=== PATIENT | female | born 1935 | race Caucasian/White ===

== ENCOUNTER 2018-01-13 07:53 | Day surgery (SDC) | payer MEDICARE, OTHER ==
[~2018-01-13] VITALS: Ht 170.2 cm; Wt 72.6 kg
[2018-01-13 07:52] VITALS: BP 125/66
[~2018-01-13 07:53] MED LIST: AMIT50TA3 PO; AMLO5TAB2 PO; ASPI-586 PO; CALC-902 PO; CETI10TA17 PO; DICL50TA6 PO; FERR159T2 PO; FLUT9.9S NS; GABA-486 PO; GUAI600T43 PO; IBUP-2055 PO; L.AC1CAP6 PO; LEVO88TA54 PO; LISI10TA2 PO; OMEG-154 PO; OMEP20CA12 PO
[2018-01-13] MEDS ORDERED: ceFAZolin INJECTION 1,000 MG in NS (IVPB) 100 ML IV ONE (08:00)
[2018-01-13] MEDS: LACTATED RINGERS 1,000 ML IV PRN ×2 (08:41→10:40)
[2018-01-13] MEDS ORDERED: LACTATED RINGERS 1,000 ML IV PRN (08:43)
[2018-01-13] MEDS ORDERED: FAMOTIDINE 20MG/2ML IV (PEPCID) IV ONE (08:45)
[2018-01-13] MEDS ORDERED: FAMOTIDINE 20MG/2ML IV (PEPCID) ONE (08:53)
[2018-01-13] MEDS ORDERED: LIDOCAINE PF 2% 5 ML (XYLOCAINE) VIAL ONE (09:12)
[2018-01-13] MEDS ORDERED: SEVOFLURANE (ULTANE) 15 ML INHAL SOLN ONE (09:12)
[2018-01-13] MEDS ORDERED: ONDANSETRON 4 MG/2 ML (SDV) Z0FRAN ONE (09:12)
[2018-01-13] MEDS ORDERED: fentaNYL INJECTION 100 MCG/2 ML AMP ONE (09:12)
[2018-01-13] MEDS ORDERED: proPOfol 200 MG/20 ML (DIPRIVAN) VIAL IV ONE (09:12)
[2018-01-13] MEDS ORDERED: DEXAMETHASONE 10 MG/ML (DECADRON) 1 ML VIAL ONE (09:12)
[2018-01-13] MEDS ORDERED: BUPIVACAINE 0.5% 30 ML (SENSORCAINE) VIAL ONE (09:39)
--- NOTE | 2018-01-13 10:04 | Progress Note-Pre Operative ---
Pre-Operative Progress Note H&P Reviewed The H&P was reviewed, patient examined and no changes noted. 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
[2018-01-13] MEDS ORDERED: LACTATED RINGERS 1,000 ML IV SCH (11:55)
--- NOTE | 2018-01-13 11:55 | Progress Note-Post Operative ---
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
[2018-01-13] MEDS ORDERED: ACHD5005 PO (11:58)
[2018-01-13] MEDS ORDERED: CEPH500C PO (11:58)
[2018-01-13] MEDS ORDERED: HYDROcodone/APAP 5 MG/325 MG (LORTAB) TAB PO PRN (12:00)
--- NOTE | 2018-01-13 12:07 | Anesthesia-General Post-Op ---
General Patient Condition Mental Status/LOC: Same as Preop Cardiovascular: Satisfactory Nausea/Vomiting: Absent Respiratory: Satisfactory Pain: Controlled Complications: Absent Post Op Complications Complications None Follow Up Care/Instructions Patient Instructions None needed. Anesthesia/Patient Condition Patient Condition Patient is doing well, no complaints, stable vital signs, no apparent adverse anesthesia problems. No complications reported per nursing. [place] [facility] [place] DERECK ESPOSITO CRNA January 13, 2018 12:07
[2018-01-13] MEDS ORDERED: ONDANSETRON 4 MG/2 ML (SDV) Z0FRAN IVP PRN (12:15)
[2018-01-13] MEDS ORDERED: morphine INJ 10 MG/ML 1ML (SYR OR VIAL) IVP PRN (12:15)
[2018-01-13 12:55] VITALS: BP 106/97
[2018-01-13 13:25] VITALS: BP 137/74
--- NOTE | 2018-01-13 13:42 | Diagnostic Imaging Report ---
INDICATION: Hammertoe surgery. TIME OF EXAM: 12:22 p.m. FINDINGS: Two views of the right foot demonstrate postsurgical changes. There are postop changes involving the third and fourth toes with screws transfixing the proximal phalanges. There is a K-wire extending through the fourth toe. There has also been resection of the distal aspect of the proximal phalanx of the fifth toe. IMPRESSION: Postop changes to the right foot, as described. Dictated by: Dictated on workstation # [id number]
[2018-01-13 14:00] VITALS: BP 136/66
[2018-01-13 14:35] VITALS: BP 136/66
--- NOTE | 2018-01-13 16:40 | OPERATIVE REPORT ---
DATE OF SERVICE: 01/13/2018 SURGEON: Mary Cortez DPM. PREOPERATIVE DIAGNOSIS: Hammer digit syndrome, right fourth and fifth digits. POSTOPERATIVE DIAGNOSIS: Hammer digit syndrome, right fourth and fifth digits, failed hardware fourth and fifth digits. PROCEDURE: 1. Reduction of hammertoe, right fourth and fifth digits. 2. Removal of hardware, right fifth digit. WOUND CLASS: Clean. ANESTHESIA: General. HEMOSTASIS: Pneumatic thigh tourniquet at 250 mmHg. INDICATIONS: This 82-year-old female presents complaining of painful hammertoes, right foot. Conservative therapies met with unsatisfactory results. She was previously addressed surgically with Smart Toe implants to third, fourth and fifth digits of the right foot. The third toe was satisfactory as far as its alignment but the fourth and fifth toes had a significant adductovarus rotation with the implant extruding out of the bone and causing skin irritation and pain for the patient. Conservative and surgical revision were discussed at length. She is willing to proceed. No guarantees were extended to her. DESCRIPTION OF PROCEDURE: The patient was brought back to the operating table, placed in secure supine position. A general anesthetic was then induced. Appropriate timeout was performed. The right fourth and fifth digits were anesthetized utilizing 9 mL of 0.5% Marcaine plain. The right foot was prepped and draped in normal sterile manner. The right foot was then elevated, allowed to exsanguinate after which the tourniquet was inflated to 250 mmHg. Attention was then directed to the dorsal aspect of the right fourth toe where a 3 cm longitudinal linear incision was created. The incision was deepened in the same plane with great care to identify and retract all vital neurovascular structures. All the necessary blood vessels were cauterized as encountered. The incision was deepened down to the extensor tendon where a Z slide lengthening was performed overlying the proximal interphalangeal joint and the extensor tendon reflected proximally. The extensor su was then released overlying the metatarsophalangeal joint. The dorsal capsulorrhaphy was performed to the metatarsal phalangeal joint. This allowed the proximal phalanx to come down into rectus alignment. Attention to the proximal interphalangeal joint area indicated a metallic object consistent with a Smart Toe implant. The bone was resected around the distal portion of the implant. The middle phalanx was dislocated medially. This area of the proximal portion of the middle phalanx was rongeured to remove the soft tissue down to exposed bone. A 0.045 K-wire was used to fenestrate the exposed bone to the distal portion of the proximal phalanx and the proximal portion of the middle phalanx. Next, the remainder of the Smart Toe implant was then penetrate the middle phalanx in rectus alignment. Good bony apposition was appreciated at this time as well as overall alignment of the toe. To ensure the overall alignment of the toe would remain appropriate, a 0.045 K-wire was driven down the toe and extended out the end of the digit. The K-wire was cut and a protective ball placed over the end of the wire. The wound was flushed with copious amounts of normal saline and closure was performed in layers. Deep closure was performed with 3-0 Vicryl, superficial with 4-0 Vicryl, skin closure with 4-0 Prolene in a horizontal mattress type stitch. Attention was then directed to the right fifth digit where a 3 cm longitudinal linear incision was created. The incision was deepened in the same plane with great care to identify and retract all vital neurovascular structures. There is a mass noted to the dorsal aspect of the right fifth metatarsophalangeal joint that was irritating the patient with soft tissue dissection. This area found to be a nonabsorbable suture which was removed without any other pathology in the area. Attention was then directed to the distal interphalangeal joint of the right fifth toe were the medial and lateral collateral ligaments were released as well as the extensor tendon. Next, utilizing a power sagittal saw, the distal portion of the remaining middle phalanx was resected. This exposed the distal portion of the Smart Toe metallic implant. The implant was then removed. The wound was flushed with copious amounts of normal saline. Two semi-elliptical incisions were created to the distal portion of the incision from a proximal lateral to medial distal orientation. The circumscribed skin was removed in toto. This allowed the distal aspect of the digit to de-rotate and to have the nail plate extending more dorsally rather than laterally. The wound was flushed with copious amounts of normal saline and closure was then performed in layers. Deep closure was performed with 3-0 Vicryl, superficial closure with 4-0 Vicryl, skin closure with 4-0 Prolene in a horizontal mattress as well as some simple interrupted type stitches. The tourniquet was released. Noted appropriate capillary refill time to all digits of the right foot. Satisfactory alignment was noted to the fourth and fifth digit right foot. Postoperative injection consisted of 8 mL of 0.5% Marcaine injected in a local infusion to the surgical sites, including a digital block to the fourth and fifth digits. Postoperative dressings consisted of Betadine soaked Adaptic, sterile 4 x 4, sterile Kerlix, all secured with a Coban wrap. The patient tolerated the anesthesia and procedure well and was transported from the operating room to the recovery area with vital signs stable and vascular status intact to all digits of the right foot. She is to follow up in my office in one week period of time or sooner if necessary. Job ID: [id number] DocumentID: [id number] Dictated Date: 01/13/2018 12:07:17 Citrus Picker Date: 01/13/2018 16:39:20 Dictated By: EMILIANA SOTOMAYOR
== END 2018-01-13 14:35 | disposition home or self-care (01) ==
LOC: SDC 07:53
PROVIDERS: ATTEND Podiatrist Foot & Ankle Surgery
DX: M20.41 Other hammer toe(s) (acquired), right foot (principal); I10 Essential (primary) hypertension; E03.9 Hypothyroidism, unspecified; K21.9 Gastro-esophageal reflux disease without esophagitis; Z79.899 Other long term (current) drug therapy
CPT/HCPCS: 73620